=== PATIENT | female | born 1970 | race Caucasian/White ===

== ENCOUNTER 2022-08-14 17:42 | Outpatient (CLI) | payer OTHER | END 2022-08-14 17:43 | disposition critical access hospital (66) | LOC: EMS 17:42 | DX: R06.00 Dyspnea, unspecified (principal); R61 Generalized hyperhidrosis; R11.0 Nausea; R00.2 Palpitations; R06.4 Hyperventilation | CPT/HCPCS: A0425; A0429 ==

== ENCOUNTER 2022-08-14 18:24 | Emergency (ER) | payer OTHER ==
--- NOTE | 2022-08-14 18:57 | ED Physician Documentation ---
History of Present Illness - Stated complaint Stated Complaint: PANIC ATTACK - Chief complaint Chief Complaint: MHE - History obtained from History obtained from: Patient, EMS - History of Present Illness Timing: Today Pain level max: 0 Pain level now: 0 - Additonal information Additional information: Patient states that her son is nonverbal, autistic, 11 years old. Had a laceration to the foot, she states that that caused her anxiety to increase and she felt like she was having a panic attack in the back of the ambulance. She is currently feeling better. 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 - Present Medications Home Medications: Ambulatory Orders Medication Instructions Recorded Confirmed Cephalexin [Keflex] 500 mg PO TID #20 capsule 12/01/14 Doxycycline Hyclate 100 mg PO BID #14 tablet 12/01/14 Ibuprofen 600 mg PO TID #20 tablet 12/01/14 Melatonin/Pyridoxine [Melatonin 3 3 mg PO DAILY 12/01/14 12/01/14 mg Tablet] Multivitamin [Multi-Vitamin Daily] 12/01/14 12/01/14 Telmisartan [Micardis] 40 mg PO DAILY 12/01/14 12/01/14 - Allergies Allergies/Adverse Reactions: Allergies Allergy/AdvReac Type Severity Reaction Status Date / Time penicillin * [penicillin] Allergy Rash Verified 08/14/22 18:31 Sulfa (Sulfonamide Allergy Cramps Verified 08/14/22 18:31 Antibiotics) - Social History Does the pt smoke?: No Smoking Status: Never smoker Does the pt drink ETOH?: No Does the pt have substance abuse?: No - Immunizations Immunizations are current?: Yes PD ED PE NORMAL - Vitals Vital signs reviewed: Yes - General General: Alert and oriented X 3, Other (Mild hyperventilation. Appears visibly upset) - HEENT HEENT: PERRL, Moist mucous membranes - Neck Neck: Supple, no meningeal sign - Cardiac Cardiac: RRR - Respiratory Respiratory: No respiratory distress, Clear bilaterally - Derm Derm: Warm and dry - Neuro Neuro: Alert and oriented X 3 Results - Vitals Vitals: Vital Signs - 24 hr 08/14/22 08/14/22 18:28 21:27 Temperature 36.2 C L Heart Rate 98 88 Respiratory 30 H 13 Rate Blood Pressure 152/93 H 151/86 H O2 Saturation 100 98 Oxygen O2 Source Room air PD Medical Decision Making - ED course Complexity details: considered differential, d/w patient ED course: 52-year-old female with what appears to be a panic attack. She did improve while her son was being cared for, after her son was cared for, she did take a small dose of Xanax. She states she feels better. We will have her follow-up with her doctor for further care. Patient counseled regarding signs and symptoms for which I believe and urgent re-evaluation would be necessary. Patient with good understanding of and agreement to plan and is comfortable going home at this time This document was made in part using voice recognition software. While efforts are made to proofread this document, sound alike and grammatical errors may occur. Departure - Departure Disposition: 01 Home, Self Care Clinical Impression: Panic attack Condition: Good Instructions: ED Panic Attack Follow-Up: your,doctor as needed [Other] Comments: You had a panic attack today. Your were given a dose of xanax today. Please follow up with your doctor for further care. Discharge Date/Time: 08/14/22 21:40
[2022-08-14] MEDS ORDERED: ALPRAZolam 0.25 MG TABLET PO STA (19:55)
[2022-08-14 21:28] VITALS: BP 151/86
== END 2022-08-14 21:40 | disposition home or self-care (01) ==
LOC: ED 18:24
DX: F41.0 Panic disorder [episodic paroxysmal anxiety] (principal)
CPT/HCPCS: 99283; A9270

== ENCOUNTER 2023-06-12 09:34 | Emergency (ER) | payer OTHER ==
[2023-06-12 09:53] VITALS: O2SAT 100
--- NOTE | 2023-06-12 10:23 | XRAY Report ---
PROCEDURE: Chest 1V INDICATIONS: sob/cough TECHNIQUE: One view of the chest was acquired. COMPARISON: None. FINDINGS: Surgical changes and devices: None. Lungs and pleura: No pleural effusions or pneumothorax. Lungs are clear. Mediastinum: Mediastinal contours appear normal. Heart size is normal. Bones and chest wall: No suspicious bony lesions. Overlying soft tissues appear unremarkable. IMPRESSION: No acute cardiopulmonary process. Reviewed by: Jame Quarles MD on 06/12/2023 10:22 AM [facility] Approved by: Jame Quarles MD on 06/12/2023 10:22 AM [facility] Station ID: [id number]
--- NOTE | 2023-06-12 12:21 | ED Physician Documentation ---
History of Present Illness - Stated complaint Stated Complaint: C+,DEHYDRATION,SOA - Chief complaint Chief Complaint: General - History obtained from History obtained from: Patient, Family - Additonal information Additional information: The patient comes to the emergency department chief complaint of feeling tired and not sleeping well since coming down with COVID about 5 days ago. The patient states she tested positive 4 days ago but began having symptoms before hand. She states it started with a feeling of congestion to her sinuses and ears and then progressed to sore throat, cough, and bodyaches. She states the body aches have resolved but now she just feels very tired. No fevers or chills. The patient states she has not been eating or drinking because things taste funny and she just does not feel like it. She denies being nauseated or having any other GI symptoms. The patient is feeling distraught because she has a special needs son who is also sick and then her other son got COVID as well. Her has been away with the but just flew home to be with her and help out at home. He states that he wanted her to come in because she sounded congested and he just wanted to make sure that her oxygen and lungs were okay. The patient has high blood pressure but is otherwise healthy. No other complaints at this time. 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 - Present Medications Home Medications: Ambulatory Orders Medication Instructions Recorded Confirmed Cephalexin [Keflex] 500 mg PO TID #20 capsule 12/01/14 Doxycycline Hyclate 100 mg PO BID #14 tablet 12/01/14 Ibuprofen 600 mg PO TID #20 tablet 12/01/14 Melatonin/Pyridoxine [Melatonin 3 3 mg PO DAILY 12/01/14 12/01/14 mg Tablet] Multivitamin [Multi-Vitamin Daily] 12/01/14 12/01/14 Telmisartan [Micardis] 40 mg PO DAILY 12/01/14 12/01/14 Benzonatate [Tessalon] 200 mg PO TID PRN #30 cap 06/12/23 predniSONE [Deltasone] 10 mg PO [id number] #42 tab 06/12/23 - Allergies Allergies/Adverse Reactions: Allergies Allergy/AdvReac Type Severity Reaction Status Date / Time penicillin * [penicillin] Allergy Rash Verified 06/12/23 09:47 Sulfa (Sulfonamide Allergy Cramps Verified 06/12/23 09:47 Antibiotics) - Social History Does the pt smoke?: Yes Smoking Status: Current every day smoker Does the pt drink ETOH?: No Does the pt have substance abuse?: No - Immunizations Immunizations are current?: Yes PD ED PE NORMAL - Vitals Vital signs reviewed: Yes - General General: Alert and oriented X 3, No acute distress, Well developed/nourished, Other (The patient is tearful and emotionally distraught but in no distress otherwise.) - HEENT HEENT: Atraumatic, PERRL, EOMI, Moist mucous membranes - Neck Neck: Supple, no meningeal sign - Cardiac Cardiac: RRR, No murmur, Strong equal pulses - Respiratory Respiratory: No respiratory distress, Clear bilaterally - Abdomen Abdomen: Soft, Non tender, Non distended - Derm Derm: Normal color, Warm and dry, No rash - Extremities Extremities: No deformity, No edema - Neuro Neuro: Other (Grossly intact) - Psych Psych: Normal mood, Normal affect Results - Vitals Vitals: Vital Signs - 24 hr 06/12/23 06/12/23 09:42 11:14 Temperature 36.7 C Heart Rate 76 66 Respiratory 20 16 Rate Blood Pressure 152/97 H 147/91 H O2 Saturation 100 100 Oxygen O2 Source Room air - Rads (name of study) chest XR Relevant Findings:: Final report received, See rad report (neg) PD Medical Decision Making - ED course Complexity details: reviewed results, re-evaluated patient, considered differential, d/w patient, d/w family ED course: Chest x-ray was negative. The patient's lungs were clear and her oxygen saturation was 100% on room air. I did have a arnaud talk with the patient that she needs to drink fluids and there is no reason why she cannot and should not do this. Even if the fluids seem unpalatable, she needs to have a fluid intake goal and meet that every day. I have discussed this with her as well, who expresses understanding. We have discussed symptomatic management at home, as well as the timeline for resolution of symptoms. Departure - Departure Disposition: Home, Self Care Clinical Impression: COVID-19 Condition: Stable Instructions: ED Viral Syndrome Prescriptions: predniSONE [Deltasone] 10 mg PO [id number] #42 tab Benzonatate [Tessalon] 200 mg PO TID PRN #30 cap PRN Reason: Cough Comments: Your chest x-ray looks great, and your lungs are clear. Your oxygen saturation is 100% on room air, which is excellent. There is no evidence of any significant respiratory complication of the COVID. It is not uncommon to feel miserable when you have a viral illness, whether COVID or otherwise, but ultimately, viral illnesses are self-limited and will pass on their own. You are outside of the window for treatment with Paxlovid, An antiviral that is sometimes used for COVID. This medication has been demonstrated to have mixed results, and ultimately, your body must fight the virus on its own. You can still take medications to help mitigate symptoms throughout this process, and as such, prescriptions for cough medicine and a steroid course have been e lectronically transmitted to the [facility] pharmacy in [place]. Please be sure you are getting 8 to 10 cups of water every day, whether you feel like drinking or not. Please follow-up with your primary care physician as needed. You can expect symptoms to last for 1 to 2 weeks and then begin to resolve. Forms: PCP List, Activity restrictions
[2023-06-12 12:46] VITALS: BP 138/94
== END 2023-06-12 12:39 | disposition home or self-care (01) ==
LOC: ED 09:34
DX: U07.1 COVID-19 (principal); I10 Essential (primary) hypertension; Z79.899 Other long term (current) drug therapy; F17.200 Nicotine dependence, unspecified, uncomplicated
CPT/HCPCS: 99283